=== PATIENT | male | born 1980 | race Caucasian/White ===

== ENCOUNTER 2019-05-30 13:53 | Emergency (ER) | payer MEDICARE, SELFPAY ==
[2019-05-30] VITALS (7 sets, daily range): BP systolic 119–142; BP diastolic 76–107; PULSE 88–114; RESP 15–21; TEMP 36.5–37.2; O2SAT 96–99; BMI 23.1
[2019-05-30] MEDS: 0.9% Normal Saline 1,000 ML 1000 ML IV (14:28)
--- NOTE | 2019-05-30 14:35 | CT_ITS ---
STUDY: CT CERVICAL SPINE WITHOUT CONTRAST REASON FOR EXAM: Male, 39 years old. FALL HITTING HEAD X-FEW DAYS AGO -- ?LOC -- GENERAL PAIN, DIFFICULTY AMBULATING and amp; SPEAKING -- HX-TRAUMATIC BRAIN INJURY X RADIATION DOSAGE (If Supplied By Facility): CTDIvol = ( 19.49 ) mGy, DLP = ( 393.10 ) mGycm TECHNIQUE: High resolution transaxial imaging was performed without contrast material. Sagittal and coronal images were reconstructed. Individualized dose optimization techniques were used for this CT. COMPARISON: None FINDINGS: Normal craniovertebral junction. Normal anterior atlantoaxial articulation. Normal odontoid process. Normal cervical lordosis. Normal vertebral bodies and posterior osseous elements. C2-3: Normal endplates. Normal disc height and morphology. Normal central canal and intervertebral neuroforamina. C3-4: Normal endplates. Normal disc height and morphology. Normal central canal and intervertebral neuroforamina. C4-5: Normal endplates. Normal disc height and morphology. Normal central canal and intervertebral neuroforamina. C5-6: Normal endplates. Normal disc height and morphology. Normal central canal and intervertebral neuroforamina. C6-7: Normal endplates. Normal disc height and morphology. Normal central canal and intervertebral neuroforamina. C7-T1: Normal endplates. Normal disc height and morphology. Normal central canal and intervertebral neuroforamina. Normal visualized soft tissue structures. CT/Spine Cervical without Contras IMPRESSION: Normal unenhanced CT examination of the cervical spine. Electronically Signed: Jace King, at 15:59 EDT , Service support ,
--- NOTE | 2019-05-30 14:35 | CT_ITS ---
STUDY: CT BRAIN WITHOUT CONTRAST REASON FOR EXAM: Male, 39 years old. FALL HITTING HEAD X-FEW DAYS AGO -- ?LOC -- GENERAL PAIN, DIFFICULTY AMBULATING and amp; SPEAKING -- HX-TRAUMATIC BRAIN INJURY X RADIATION DOSAGE (If Supplied By Facility): CTDIvol = ( 44.99 ) mGy, DLP = ( 812.98 ) mGycm TECHNIQUE: Transaxial CT imaging of the brain was performed without administration of intravenous contrast material. Individualized dose optimization techniques were used for this CT. COMPARISON: Comparison is made with prior study March 10, 2011. FINDINGS: Normal soft tissue structures. Normal calvarium. Normal size ventricles and extra-axial spaces for the patient''s age. Normal white matter tracts of the cerebral hemispheres. Normal basal ganglia and thalami. Normal brainstem. Normal cerebellum. There is no intracranial hemorrhage. There are no findings of an acute ischemic infarction. Mucosal thickening of the left maxillary sinus. Partial opacification of the left ethmoid sinus. CT/Brain/Head without Contrast IMPRESSION: Sinusitis. Electronically Signed: Jace King, at 15:58 EDT , Service support ,
--- NOTE | 2019-05-30 14:36 | CT_ITS ---
We are attempting to reach an attending provider to discuss findings. An addendum with communication details will be sent when the communication is complete. STUDY: CT ABDOMEN AND PELVIS WITH CONTRAST REASON FOR EXAM: Male, 39 years old. General pain and difficulty ambulating RADIATION DOSAGE (If Supplied By Facility): CTDIvol = ( 12.3 ) mGy, DLP = ( 1269.36 ) mGycm TECHNIQUE: CT images were obtained from the dome of the diaphragm to the symphysis pubis without oral contrast. IV 100mL Isovue-300 was administered. Sagittal and coronal images were reconstructed. Individualized dose optimization techniques were used for this CT. COMPARISON: None. FINDINGS: There is minor groundglass nodular opacity in the left lower lobe lateral aspect of superior segment. Rest lungs are clear. There are no pleural effusions. There is minor atelectasis. There is enlargement of the right ventricle with flattening of the septum. Left ventricle is normal. There is near complete nonperfusion of the right kidney with abrupt occlusion of the right main renal artery. There is minimal subsegmental perfusion in the inferior pole due to a small accessory artery. Left kidney is well perfused and appears normal. There is no excretion from the right kidney with normal excretion of contrast from the left kidney. There is a typical appearance of contrast in the urinary bladder, possibly artifactual versus due to presence of hematuria and/or intravesical clot. Liver, spleen adrenals and pancreas are intact. There is no intestinal obstruction. However, small bowel is fluid-filled and has a probable intussusception in the left flank. There are no acute osseous fractures. 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 CT/Abdomen/Pelvis W IV Cont ONLY IMPRESSION: 1. 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 Emergency vascular consultation is advised. 2. Normal left kidney. 3. Presumed small bowel intussusception, probably early obstruction. Emergency surgical referral is advised. 4. Abnormally dilated right ventricle and/or strain. This is incompletely evaluated, refer to dedicated chest imaging and echocardiography to exclude possibility of acute pulmonary arterial hypertension and impending right ventricular failure. Possibility of acute pulmonary embolism is present. Electronically Signed: Ezra Christine, at 16:15 EDT Tel , Service support ,
--- NOTE | 2019-05-30 14:37 | EKG12_ITS ---
Test Reason : FALL Blood Pressure : / mmHG Vent. Rate : 111 BPM Atrial Rate : 111 BPM P-R Int : 120 ms QRS Dur : 098 ms QT Int : 306 ms P-R-T Axes : 065 080 053 degrees QTc Int : 416 ms Sinus tachycardia Possible Inferior infarct , age undetermined Abnormal ECG Confirmed by NOAH MADDEN, EDY ([id number]), associate editor MONICA BUCHANAN ([id number]) on 06/02/2019 11:40:17 AM Referred By: CLARI Confirmed By:MYA ZAMORA MD
[2019-05-30 15:05] LABS: Absolute Lymphocyte Count 1.36 X10^3/uL (0.83-4.51); Absolute Neutrophil Count 18.6 X10^3/uL (2.0-7.7); Basophil# 0.03 X10^3/uL; Basophil% 0.1 % (0-1); Eosinophil# 0.03 X10^3/uL; Eosinophils% 0.1 % (0-5); Hematocrit 46.4 % (40-54); Hemoglobin 15.5 g/dL (13.0-16.5); Lymphocyte # 1.36 X10^3/ul (4.0); Mean Corp Hgb Conc 33.4 g/dL (32-36); Mean Corpuscular Hgb 30.6 pg (27.0-32.0); Mean Corpuscular Volume 91.7 fL (80-94); Mean Platelet Vol. 9.7 fl (6.2-12.0); Monocyte# 2.35 X10^3/uL; Monocyte% 10.4 % (0-10); NRBC Flagged by Analyzer 0 % (0-5); Neutrophil % 82.8 % (47-70); POSITIVE COUNT YES; POSITIVE DIFFERENTIAL YES; Platelet Count 167 K/mm3 (150-450); RBC Distribution Width CV 12.3 % (11.6-14.6); RBC Distribution Width SD 41.7 fl (35.1-43.9); Red Blood Count 5.06 M/mm3 (4.6-6.2); White Blood Count 22.5 K/mm3 (4.4-11.0)
[2019-05-30 15:08] LABS: Differential Indicated SCAN CRITERIA MET
[2019-05-30 15:19] LABS: ALB/GLOB Ratio 0.6 RATIO (0.9-2.4); AST(SGOT) 151 U/L (15-37); Alanine Aminotransfer ALT/SGPT 124 U/L (16-61); Albumin, Serum 3.1 g/dL (3.2-5.0); Alkaline Phosphatase 101 U/L (45-117); Anion Gap 9 (5-15); BUN 21 mg/dL (7-18); BUN/Creat Ratio 10.2 RATIO (10-20); Chloride 102 mmol/L (98-107); Creatinine, Serum 2.06 mg/dL (0.70-1.30); EST Glomerular Filtration Rate 38 mL/min (>60); Est Glom Filt Rate - Afr Amer 46 mL/min (>60); Globulin 4.8 g/dL (2.2-4.2); Glucose 84 mg/dL (74-106); Lipase 136 U/L (73-393); Potassium 4.1 mmol/L (3.5-5.1); Protein, Total 7.9 g/dL (6.4-8.2); Sodium Level 133 mmol/L (136-145)
[2019-05-30 15:30] LABS: Anisocytosis RARE; Macrocytosis RARE; Platelet Estimate ADEQUATE (ADEQ); Platelet Morphology LARGE; Red Cell Morphology N CHROM NORMAL (NORM C&C)
--- NOTE | 2019-05-30 15:42 | RAD_ITS ---
STUDY: X-RAY CHEST REASON FOR EXAM: Male, 39 years old. SYNCOPE TECHNIQUE: AP and lateral views of the chest. COMPARISON: Comparison is made with prior study dated August 24, 2015. FINDINGS: EKG electrodes are seen. The lungs are clear and expanded. There is no demonstrated pleural abnormality. Normal size heart. Normal mediastinum and aurea. Normal visualized pulmonary arteries. Normal visualized aortic arch and descending thoracic aorta. Normal visualized thoracic spine. Normal visualized ribs, clavicles, and shoulders. There is no demonstrated abnormality of the visualized soft tissue structures of the upper abdomen. RAD/Chest PA and Lateral IMPRESSION: Normal x-ray examination of the chest. Electronically Signed: aJce King, at 16:00 EDT , Service support ,
--- NOTE | 2019-05-30 15:45 | ED.VIS.GEN ---
History of Present Illness Chief Complaint: Fall Informant: Patient, Family Narrative: Patient states that on Wednesday night he was coming back from his house when he fell down. He is unsure if he tripped or he passed out. He is unsure of how long he laid on the ground. Since that time he has had headache and feels more confused than normal he feels generalized abdominal pain. He notes his urine is darker than normal. He notes pain in his flanks. He notes pain in the medial thighs. He notes various abrasions about his face forearms arms. Past Medical History - Allergies and Home Meds Allergies/Adverse Reactions: Allergies No Known Allergies Allergy (Verified 05/30/19 13:54) Primary Care Physician: Care Physician,No Primary [Primary Care Provider] - Smoking Status: Never smoker Review of Systems General: Denies: Chills, Fever, Sweats Eyes: Denies: Visual changes - bilaterally, Diplopia ENT: Denies: Rhinorrhea, Sore throat Cardiovascular: Denies: Chest pain, Palpitations Respiratory: Denies: Dyspnea, Cough, Dyspnea on exertion Gastrointestinal: Reports: Abdominal pain, Nausea, Vomiting. Denies: Diarrhea, Melena, Hematochezia Genitourinary: Reports: - - Decreased amount of urination and darker than normal. Denies: Dysuria, Hematuria, Frequency Musculoskeletal: Reports: Neck pain. Denies: Back pain, Extremity Pain Skin: Denies: Rash, Wounds Neurological: Reports: Headache. Denies: Weakness, Numbness Physical Exam Vital Signs/Narrative: Vital Signs Temp Pulse Resp BP Pulse Ox 05/30/19 15:23 107 H 16 129/92 H 96 05/30/19 14:36 114 H 16 122/100 H 97 05/30/19 13:54 98.9 F 113 H 18 124/86 H 99 Inital Vital Signs reviewed: Yes General: Well nourished, Well developed, No Acute Distress, - - Patient looks ill. Head: Normocephalic, Trauma - Multiple abrasions to face and hands. Eyes: Perrl, EOMI ENT: Moist mucous membranes, No rhinorrhea Neck: Supple, - - Tender diffusely about the neck particularly on the left Cardiovascular: Regular rate, Regular rhythm, No murmurs Respiratory: No distress, CTA bilaterally, Chest nontender Abdomen: Nondistended, Tender, Guarding, Hypoactive bowel sounds Back: Nontender, Normal Inspection, - - I do not see any flank ecchymosis. Extremities: Tenderness - Tender palpation of the bilateral thighs and multiple abrasions of the hands and forearms Skin: Normal color, No rash Neurological: Alert, Oriented x3, Cranial nerves II-XII grossly intact, Normal Strength, Normal Sensation, - - Patient's stutters Psychological: Normal affect, Normal Mood Diagnostic/Tx/Re-eval - Rhythm Strip Rhythm Strip: Sinus Tach - EKG Initial EKG Interpretation: Sinus Tachycardia - EKG is a sinus tachycardia at 111 - Medical Decision Making CT the head and neck were negative. Basic labs showed a white count 22.5 and a creatinine of 2 the last creatinine I have is 1. Slight elevation of transaminases normal lipase. CPK and troponin are pending at the time of this dictation. As is lactic acid. CT of the abdomen pelvis demonstrates an apparent acute right renal artery infarct with proximal occlusion of the renal artery and noted dissection versus thrombus. There is also possibility of intussusception with small bowel obstruction noted in the small bowel has some air-fluid levels and some dilatation. The right ventricle also appears dilated raising the possibility of acute pulmonary hypertension. Patient received IV fluid boluses. Given his multitude of findings and the critical nature of that I think he is best served at a tertiary care facility. I discussed the case with ICU here who agrees with that assessment. I spoke with Lee Gomez and the plan will be to transfer him forth with the MICU. - Critical Care Time Critical care time (excluding procedures): 30-74 minutes - 35 minutes ED Disposition - Plan for ED Patient: Disposition: Acute Care Hospital - Other Diagnosis: Renal infarct, Rhabdomyolysis, Elevated troponin, Right ventricular dilation, Acute kidney injury, Intussusception intestine Referrals: Care Physician,No Primary [Primary Care Provider] -
[2019-05-30 16:13] LABS: Bacteria 0 SEEN /hpf (None Seen); Mucous, Urine 0 SEEN /hpf (<or=2+); Squamous Epithelial Cells - UA 0 SEEN /hpf (0-5)
[2019-05-30 16:18] LABS: Color, Urine Yellow (Yellow); Glucose, Dipstick Normal (Normal); Ketone-Dipstick Negative (Negative); Leukocyte Esterase-Dipstick Negative /ul (Negative); Nitrite-Dipstick Negative (Negative); Occult Blood-Urine 250 /ul (Negative); Protein-Dipstick 100 mg/dl (Negative); Urine Bilirubin Dipstick Negative (Negative); Urine Clarity Clear (Clear); Urine Urobilinogen Normal (Normal)
[2019-05-30 16:42] LABS: International Normalized Ratio 1.6; Prothrombin Time (Protime)PT. 18.5 SECONDS (11.7-14.9)
[2019-05-30 16:43] LABS: Partial Thromboplast Time 37.3 Seconds (24.1-36.2)
[2019-05-30 16:55] LABS: Red Blood Cells-Urine 0-5 SEEN /hpf (0-5); White Blood Cells 0-5 SEEN /hpf (0-5)
[2019-05-30 17:02] LABS: CPK Total, Creatine Kinase 2008 U/L (39-308)
[2019-05-30 17:04] LABS: Lactic Acid 2.8 mmol/L (0.4-1.9)
[2019-05-30] MEDS: 0.9% Normal Saline 1,000 ML 999 ML IV (17:45)
[2019-05-30] MEDS: Heparin Injection (Vial) 5,000 UNIT/ML VIAL 6000 UNIT IV (17:46)
[2019-05-30] MEDS: Ondansetron 4 MG/2 ML Vial IV (17:46)
[2019-05-30] MEDS: Morphine 4 MG/ML Syringe IV (17:47)
--- NOTE | 2019-05-30 17:53 | NURSING ---
[facility] ROOM [id number]
[2019-05-30] MEDS: HEPARIN/D5w 25,000 UNITS 25,000 UNITS/250 ML IV.SOLN. 12 UNITS IV (18:20)
--- NOTE | 2019-05-30 19:03 | ED.RN ---
DELAY IN PT TRANSFER D/T EMS EQUIPMENT
--- NOTE | 2019-05-30 19:05 | ED.RN ---
CALLED JAQUELINE DEVLIN, TO [facility] DIDN[facility]T HAVE A PUMP, JAQUELINE DEVLIN ETA 10 MINUTES AT 1901
[2019-05-30 20:28] LABS: Reflex Lactate? Y
[2019-05-31 12:24] LABS: Pathologist Review Reviewed
== END 2019-05-30 19:41 | disposition short-term general hospital (02) ==
PROVIDERS: Emergency Provider Emergency Medicine
DX: N28.0 Ischemia and infarction of kidney (principal); M62.82 Rhabdomyolysis; N17.9 Acute kidney failure, unspecified; K56.1 Intussusception; I51.7 Cardiomegaly
CPT/HCPCS: 70450; 71046; 72125; 74177; 80053; 81001; 82550; 83605; 83690; 84484; 85025; 85610; 85730; 93005; 96361; 96365; 96366; 96375; 99285; J7030; Q9967; A4216; J2405